=== PATIENT | male | born 1970 | race Caucasian/White ===

== ENCOUNTER 2016-05-25 05:39 | Emergency (ER) | payer OTHER ==
[2016-05-25] MEDS ORDERED: OXYMETAZOLINE NASAL SPRAY NAS ONE (05:49)
[2016-05-25] MEDS ORDERED: OXYMETAZOLINE NASAL SPRAY NAS STA (05:49)
== END 2016-05-25 06:25 | disposition home or self-care (01) ==
DX: R04.0 Epistaxis (principal); I10 Essential (primary) hypertension
CPT/HCPCS: 30901; 99282; 99283; A9270

== ENCOUNTER 2018-04-04 14:14 | Emergency (ER) | payer OTHER ==
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
[2018-04-04 15:25] VITALS: BP 147/90
== END 2018-04-04 15:30 | disposition home or self-care (01) ==
LOC: EDBD → EDUNIT# → ED 14:14
DX: Z57.5 Occupational exposure to toxic agents in other industries (principal); I10 Essential (primary) hypertension
CPT/HCPCS: 99285

== ENCOUNTER 2018-04-04 20:31 | Emergency (ER) | payer OTHER ==
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
[2018-04-04] MEDS ORDERED: IPRATROPIUM/ALBUTEROL 3 ML NEB INH STA (21:03)
[2018-04-04] MEDS ORDERED: DEXAMETHASONE 10 MG/ML VIAL PO STA (21:52)
[2018-04-04] MEDS ORDERED: ALBUTEROL NEB 2.5 MG/3 ML INH STA (21:52)
[2018-04-04] MEDS ORDERED: CHERRY SYRUP 10 ML UDC PO ONE (21:57)
--- NOTE | 2018-04-04 22:05 | XRAY Report ---
Reason: cough, chemical exposure Procedure Date: 04/04/2018 Accession Number: [id number] / [id number] Procedure: XR - Chest 2 View X-Ray CPT Code: 81320 FULL RESULT: EXAM: CHEST RADIOGRAPHY EXAM DATE: 04/04/2018 09:20 PM. CLINICAL HISTORY: Cough, chemical exposure. COMPARISON: None. TECHNIQUE: 2 views. FINDINGS: Lungs/Pleura: No alveolar consolidation or pleural effusion seen. No pneumothorax. Mediastinum: Heart and mediastinal contours are unremarkable. Other: Old healed fracture in the right clavicle. IMPRESSION: 1. No acute abnormality seen in the chest. RADIA
[2018-04-04 22:15] VITALS: BP 131/93
== END 2018-04-04 22:40 | disposition home or self-care (01) ==
LOC: ED 20:31
DX: T65.891A Toxic effect of other specified substances, accidental (unintentional), initial encounter (principal); J68.8 Other respiratory conditions due to chemicals, gases, fumes and vapors; R21 Rash and other nonspecific skin eruption; Y92.89 Other specified places as the place of occurrence of the external cause; Y99.0 Civilian activity done for income or pay; Z57.5 Occupational exposure to toxic agents in other industries; I10 Essential (primary) hypertension
CPT/HCPCS: 71046; 94640; 94664; 99283; 99285; A9270

== ENCOUNTER 2018-06-05 15:07 | Outpatient (CLI) | payer OTHER ==
--- NOTE | 2018-06-05 17:05 | MRI Report ---
Reason: RADICULOPATHY, LUMBAR REGION Procedure Date: 06/05/2018 Accession Number: [id number] / [id number] Procedure: MRI - Lumbar Spine W/O CPT Code: FULL RESULT: EXAM: MRI LUMBAR SPINE WITHOUT CONTRAST EXAM DATE: 06/05/2018 04:05 PM. CLINICAL HISTORY: 48-year-old with low back pain and lower extremity radiculopathy. Evaluate for lumbar pathology. COMPARISON: None. TECHNIQUE: Multiplanar, multisequence T1-weighted and fluid-sensitive sequences of the lumbar spine from T12 to S1 without contrast. Other: None. FINDINGS: Spinal Canal: The conus terminates at T12-L1. The conus medullaris and cauda equina are unremarkable. Alignment: Straightening of the normal lumbar lordosis. There is 6 mm of grade 1 anterolisthesis of L5 on S1. Bone Marrow: Five [id number] lumbar vertebral bodies are assumed. No acute fracture. There are modic type I changes seen at L1-L2, L2-L3, L4-L5 and L5-S1 that may be degenerative in nature. No abnormal marrow replacing lesion. Disk Levels/Facets: T12-L1: Mild endplate degenerative change, Schmorl's node formation and mild loss of disk height. Slight posterior disk bulge. Bilateral arthritic facet disease. No spinal canal stenosis. No definite neural foraminal narrowing. L1-L2: Mild endplate degenerative change, Schmorl's node formation and mild loss of disk height. Slight posterior disk bulge. Bilateral arthritic facet disease. No spinal canal stenosis. No definite neural foraminal narrowing. L2-L3: Mild endplate degenerative change, Schmorl's node formation and mild loss of disk height. Slight posterior disk bulge with superimposed tiny right and small left neural foraminal disk protrusions. Bilateral arthritic facet disease. No spinal canal stenosis. Mild right and mild to moderate left neural foraminal narrowing. L3-L4: Mild endplate degenerative change, Schmorl's node formation and mild loss of disk height. Slight posterior disk bulge. Bilateral arthritic facet disease. No spinal canal stenosis. Mild bilateral neural foraminal narrowing. L4-L5: Mild endplate degenerative change, Schmorl's node formation and mild loss of disk height. Slight posterior disk bulge with superimposed tiny right and small left neural foraminal for lateral disk protrusion. Bilateral arthritic facet disease. No spinal canal stenosis. Mild right and moderate left neural foraminal narrowing with contact of the exiting left L4 nerve root. L5-S1: Mild endplate degenerative change, Schmorl's node formation and mild loss of disk height. Uncovering of the endplate. Small central disk protrusion. Bilateral arthritic facet disease. Effacement of the lateral recesses with contact of the traversing bilateral S1 nerve roots, greater on the left. Mild to moderate bilateral neural foraminal narrowing. Musculature: Normal. No edema or fatty atrophy. Other: The partially visualized retroperitoneum is unremarkable. IMPRESSION: 1. Straightening of the normal lumbar lordosis. 2. There is 6 mm of grade 1 anterolisthesis of L5 on S1. 3. Multilevel degenerative changes. L2-L3: No spinal canal stenosis. Mild right and mild to moderate left neural foraminal narrowing. L3-L4: No spinal canal stenosis. Mild bilateral neuroforaminal narrowing. L4-L5: Small left neuroforaminal for lateral disk protrusion. No spinal canal stenosis. Mild right and moderate left neuroforaminal narrowing with contact of the exiting left L4 nerve root. L5-S1: Small central disk protrusion. Effacement of the lateral recesses with contact of the traversing bilateral S1 nerve roots, greater on the left. Mild to moderate bilateral neuroforaminal narrowing. Comment: The following findings are so common in adults without low back pain that while we report their presence, they must be interpreted with caution and in the context of the clinical situation. (Reference Harvinderk et al, Spine 2001) Prevalence of findings in patients without low back pain: Disk degeneration (any evidence): 92% Disk desiccation/T2 signal loss: 83% Disk height loss: 56% Disk bulge: 64% Disk protrusion: 32% Annular tear/high intensity zone: 38% RADIA
== END 2018-06-05 15:08 | disposition home or self-care (01) ==
LOC: DI 15:07
PROVIDERS: ATTEND Family Medicine
DX: M51.36 Other intervertebral disc degeneration, lumbar region (principal); M51.37 Other intervertebral disc degeneration, lumbosacral region; M48.07 Spinal stenosis, lumbosacral region; M51.26 Other intervertebral disc displacement, lumbar region; M43.17 Spondylolisthesis, lumbosacral region; M51.27 Other intervertebral disc displacement, lumbosacral region; M51.46 Schmorl's nodes, lumbar region; M51.47 Schmorl's nodes, lumbosacral region; M47.9 Spondylosis, unspecified
CPT/HCPCS: 72148

== ENCOUNTER 2018-06-08 14:46 | Outpatient (CLI) | payer OTHER | END 2018-06-08 14:47 | disposition home or self-care (01) | LOC: RT 14:46 | PROVIDERS: ATTEND Family Medicine | DX: R05 Cough (principal) | CPT/HCPCS: 94010 ==

== ENCOUNTER 2018-08-23 19:32 | Emergency (ER) | payer OTHER ==
[2018-08-23] MEDS ORDERED: DEXAMETHASONE 10 MG/ML VIAL IM STA (20:21)
[2018-08-23] MEDS ORDERED: HYDROmorphone 1 MG/ML CARPUJECT IM STA (20:21)
--- NOTE | 2018-08-23 20:24 | ED Physician Documentation ---
History of Present Illness - Stated complaint Stated Complaint: BACK PX/LT LEG PX - Chief complaint Chief Complaint: General - History obtained from History obtained from: Patient - History of Present Illness Timing: Yesterday (This is a 48-year-old man with chronic back pain. It started in 2005. He had an MRI a couple of months ago showing multilevel degenerative changes including but not limited to moderate left neuroforaminal narrowing at L2-L3, a small left neuroforaminal disc protrusion at L4-L5 and moderate left neuroforaminal narrowing with contact of the exiting L4 nerve root on the left at that level, and effacement of bilateral S1 nerve roots greater on the left. Over the last couple days he has had left low back pain radiating to the left leg down to the left great toe. He was seen at [facility] yesterday and given a shot of Toradol and prescriptions for hydrocodone, Valium, Toradol, and prednisone without relief. He denies bowel or bladder incontinence. No fevers. No urinary complaints.) Review of Systems Constitutional: reports: Reviewed and negative Throat: reports: Reviewed and negative Cardiac: reports: Reviewed and negative Respiratory: reports: Reviewed and negative PD PAST MEDICAL HISTORY - Past Medical History Past Medical History: Yes Cardiovascular: Hypertension Respiratory: Other Neuro: None Endocrine/Autoimmune: None GI: GERD : None HEENT: None Psych: Bipolar disorder Musculoskeletal: Other Derm: Other - Past Surgical History Past Surgical History: Yes Ortho: Carpal Tunnel surgery HEENT: Tonsil/Adenoidectomy - Present Medications Home Medications: Ambulatory Orders Medication Instructions Recorded Confirmed Esomeprazole [NexIUM] 40 mg PO DAILY 01/18/14 05/25/16 Loratadine [Claritin] 10 mg PO DAILY 10/10/15 05/25/16 Fluticasone [Flonase] 1 sprays JESUS DAILY 05/25/16 05/25/16 Albuterol Sulf [Ventolin Hfa 1 - 2 puffs INH Q4HR PRN #1 inhaler 04/04/18 Inhaler] Losartan [Cozaar] 50 04/04/18 Metoprolol Succinate 50 04/04/18 predniSONE [Prednisone] 40 mg PO DAILY 3 Days #6 tablet 04/04/18 Gabapentin [Neurontin] 300 mg PO TID #60 capsule 08/23/18 Oxycodone HCl/Acetaminophen 1 - 2 each PO Q6H PRN #14 tablet 08/23/18 [Percocet 5-325 mg Tablet] predniSONE [Deltasone] 20 mg PO [id number] #21 tab 08/23/18 - Allergies Allergies/Adverse Reactions: Allergies Allergy/AdvReac Type Severity Reaction Status Date / Time mushroom Allergy Hives Verified 04/04/18 20:36 tramadol Allergy Hives Verified 04/04/18 20:36 venom-honey bee Allergy Hives Verified 04/04/18 20:36 [bee venom (honey bee)] - Social History Does the pt smoke?: No Smoking Status: Never smoker Does the pt drink ETOH?: Yes Does the pt have substance abuse?: No - Immunizations Immunizations are current?: Yes - POLST Patient has POLST: No PD ED PE NORMAL - Vitals Vital signs reviewed: Yes - General General: Alert and oriented X 3, Other (Uncomfortable and winces with motion) - Abdomen Abdomen: Normal bowel sounds, Soft, Non tender - Back Back: No spinal TTP, Other (Tender in the left paralumbar muscle area in the left sciatic notch. He has a diminished L4-L5 reflex on the left and weak flexion extension at the left ankle, presumably due to pain. He has a tingling sensation when comparing both sides over the left medial calf.) - Extremities Extremities: No edema, No calf tenderness / cord - Neuro Neuro: Alert and oriented X 3, Normal speech - Psych Psych: Normal mood, Normal affect Results - Vitals Vitals: Vital Signs - 24 hr 08/23/18 08/23/18 19:39 21:47 Temperature 36.3 C L 37.1 C Heart Rate 79 72 Respiratory 18 16 Rate Blood Pressure 149/105 H 161/105 H O2 Saturation 99 99 Oxygen O2 Source Room air - Labs Labs: Laboratory Tests 08/23/18 21:30 Urine Color YELLOW Urine Clarity CLEAR Urine pH 6.5 Ur Specific [place] 1.010 Urine Protein NEGATIVE Urine Glucose (UA) NEGATIVE Urine Ketones NEGATIVE Urine Occult Blood NEGATIVE Urine Nitrite NEGATIVE Urine Bilirubin NEGATIVE Urine Urobilinogen 0.2 (NORMAL) Ur Leukocyte Esterase NEGATIVE Ur Microscopic Review NOT INDICATED Urine Culture Comments NOT INDICATED Procedures - General procedure General procedure: Trigger point injection: After initial medications were not effective and verbal informed consent was obtained total of 8 mL of 0.5% Marcaine with epinephrine were injected into trigger points near the left sciatic notch posteriorly after alcohol prep. PD MEDICAL DECISION MAKING - ED course ED course: This is a 48-year-old gentleman with probably an acute on chronic L4 disc herniation/radiculopathy. His pain was difficult to control in the emergency department. Treatment in the emergency department consisted of an initial dose of dexamethasone and Dilaudid IM, with not much relief this was followed by morphine IM and a trigger point injection, and subsequently with Ativan IM. He was not really improving much but did request discharge. He will follow-up with his physician on Saturday. Departure - Departure Disposition: Home, Self Care Clinical Impression: Lumbar radiculopathy, acute Condition: Good Record reviewed to determine appropriate education?: Yes Instructions: ED Sciatica Prescriptions: Gabapentin [Neurontin] 300 mg PO TID #60 capsule Oxycodone HCl/Acetaminophen [Percocet 5-325 mg Tablet] 1 - 2 each PO Q6H PRN #14 tablet PRN Reason: pain predniSONE [Deltasone] 20 mg PO [id number] #21 tab Comments: We are giving you a higher dose of steroids in a more potent narcotic pain medication. Also a nerve pain medication. Do not drink or drive with any of the medications. Follow-up with your physician on Saturday. Forms: Activity restrictions
[2018-08-23] MEDS ORDERED: MORPHINE 10 MG/ML VIAL IM STA (21:17)
[2018-08-23 21:39] LABS: BILIRUBIN,URINE NEGATIVE (NEGATIVE); GLUCOSE, URINE (UA) NEGATIVE (NEGATIVE); KETONES,URINE (UA) NEGATIVE (NEGATIVE); LEUKOCYTE ESTERASE, URINE NEGATIVE (NEGATIVE); NITRITE,URINE NEGATIVE (NEGATIVE); OCCULT BLOOD,URINE NEGATIVE (NEGATIVE); PH,URINE 6.5 PH (5.0-7.5); PROTEIN,URINE NEGATIVE (NEGATIVE); UROBILINOGEN,URINE 0.2 (NORMAL) E.U./dL (NORMAL)
[2018-08-23 21:47] LABS: CLARITY,URINE CLEAR (CLEAR)
[2018-08-23] MEDS ORDERED: BUPIVACAINE 0.5%-EPI 1:200000 PF 10 ML VIAL SUBQ STA (21:55)
[2018-08-23] MEDS ORDERED: LORazepam 2 MG/ML VIAL IM STA (22:01)
[2018-08-23] MEDS ORDERED: GABAPENTIN 100 MG CAPSULE PO STA (22:38)
[2018-08-23] MEDS ORDERED: oxyCODONE/ACET 5/325 Prepack 4 PO STA (22:38)
[2018-08-23 22:52] VITALS: BP 147/110
== END 2018-08-23 22:58 | disposition home or self-care (01) ==
LOC: ED 19:32
DX: M51.16 Intervertebral disc disorders with radiculopathy, lumbar region (principal); M48.061 Spinal stenosis, lumbar region without neurogenic claudication; I10 Essential (primary) hypertension
CPT/HCPCS: 20552; 81003; 96372; 99283; A9270; J1170; J2060; 81001; 87086